=== PATIENT | female | born 1995 ===

== ENCOUNTER 2021-12-25 11:54 | Emergency (ER) | payer OTHER ==
[~2021-12-25] VITALS: Ht 168 cm; Wt 93.8 kg
[2021-12-25 12:09] VITALS: BP 146/103; TEMP 98.3
[2021-12-25] MEDS ORDERED: FLEXERIL 1010 MG/TAB PO (13:56)
[2021-12-25 14:02] VITALS: PULSE 79
== END 2021-12-25 14:02 | disposition home or self-care (01) ==
LOC: COL.ER 11:54
DX: R07.81 Pleurodynia (principal); M54.2 Cervicalgia; V89.2XXA Person injured in unspecified motor-vehicle accident, traffic, initial encounter; Y92.410 Unspecified street and highway as the place of occurrence of the external cause
CPT/HCPCS: J1885; J2360